=== PATIENT | male | born 1995 | race Caucasian/White ===

== ENCOUNTER 2016-08-24 09:14 | Inpatient (IN) | payer BC, OTHER ==
[~2016-08-24] VITALS: Ht 170.2 cm; Wt 72.6 kg
[2016-08-24 12:40] VITALS: BP 150/65
--- NOTE | 2016-08-24 13:21 | NUR ---
INTAKE ASSESSMENT received patient Aox4, stable, and ambulatory. Vital signs stable, allergic to Cefaclor. Patient reports no seizure history and no home medications. Explained unit protocols and policies and patient verbalized understanding. Will admit patient upon arrival to third floor.
--- NOTE | 2016-08-24 13:22 | NUR ---
ADMISSION NOTE Vital signs BP- 150/65 HR- 97 TEMP- 98.6 O-2 98% RR- 16 PAIN- 0/10 Height: 10 Weight: 160 lbs Allergies: Cefaclor Patient is a 21 year old male admitted to [facility] on 08/24/16 at 1255. Patient is under the care of Dr. Petersen for opiate dependence. Patient denies S/I or H/I at this time. Patient denies being hospitalized in the last 30 days. Patient denies chest pain or SOB. Patient reports no home medications, no past medical history. Upon assessment, patient has scars to left arm but skin intact. COWS 2. Patient reports using this morning and not experiencing w/d yet. Aox4 and able to answer necessary questions for admission.Patient is full code and regular diet. Patient denies seizure hx. Patient denies having a PCP. Breathing is even and unlabored. Patient reports this is his first time in treatment. Patient reports periods of homelessness and periods of living with mother. Patient smokes 1/2 a pack of cigarettes per day. Dr. Petersen has assessed patient and placed pt under observation. All needs have been met. Patient has been oriented to room, unit and staff. All safety measures are in place per hospital policy . Bed in lowest position, side rails up x2, call rodríguez within reach. Will monitor. Substance Abuse: Heroin 1 gram daily for 9 months, last used 0.3 gram this morning (08/24/16) Addendum: 08/24/16 at 1640 by SANTO KING RN Patient reports using meth 1 week ago "unknown amount" and states "I barely use meth, maybe once a week if that."
[2016-08-24 14:04] LABS: *AMPHETAMINE, URINE POSITIVE (NEGATIVE); *BARBITURATE, URINE NEGATIVE (NEGATIVE); *CANNABINOID, URINE NEGATIVE (NEGATIVE); *COCCAINE, URINE NEGATIVE (NEGATIVE); *OPIATE, URINE POSITIVE (NEGATIVE); *PHENCYCLIDINE SCREEN,URINE NEGATIVE (NEGATIVE)
[2016-08-24] MEDS ORDERED: BUPRENORPHINE HCL 2 MG TAB.SUBL SL PRN (14:15)
[2016-08-24] MEDS ORDERED: HYDROXYZINE PAMOATE 25 MG CAPSULE PO PRN (14:15)
[2016-08-24] MEDS ORDERED: DICYCLOMINE HCL 20 MG TABLET PO PRN (14:15)
[2016-08-24] MEDS ORDERED: IBUPROFEN 600 MG TABLET PO PRN (14:15)
[2016-08-24] MEDS ORDERED: CLONIDINE HCL 0.1 MG TABLET PO PRN (14:15)
[2016-08-24] MEDS ORDERED: MAGNESIUM HYDROXIDE 30 ML LIQUID UDC PO PRN (14:15)
[2016-08-24] MEDS ORDERED: ONDANSETRON 4 MG/2 ML VIAL IM PRN (14:15)
[2016-08-24] MEDS ORDERED: MIRALAX 17 GM POWD.PACK PO PRN (14:15)
[2016-08-24] MEDS ORDERED: LOPERAMIDE HCL 2 MG CAPSULE PO PRN ×2 (14:15)
[2016-08-24] MEDS ORDERED: MAG HYDROX/AL HYDROX/SIMETH 30 ML LIQUID UDC PO PRN (14:15)
[2016-08-24] MEDS ORDERED: ACETAMINOPHEN 325 MG TABLET PO PRN (14:15)
[2016-08-24] MEDS ORDERED: ONDANSETRON ODT 4 MG TAB.RAPDIS SL PRN (14:15)
[2016-08-24] MEDS ORDERED: METHOCARBAMOL 750 MG TABLET PO PRN (14:15)
[2016-08-24 16:00] VITALS: BP 126/75
--- NOTE | 2016-08-24 18:26 | NUR ---
END OF SHIFT NOTE Admitted patient this afternoon for opiate dependence. Patient is Aox4, steady, with vitals stable. Denies S/I & H/I.COWS score 2 upon admission and reassessment. Patient reports not withdrawing yet, but he expects to this evening as he last used just before admission. Patient has been napping and eating since admission. No medications administered yet. No taper started. All needs have been met. Safety measures in place. Patient currently sleeping with rr even and unlabored, call light within reach, bed locked and in lowest position. Will pass shift report to oncoming nurse.
[2016-08-24 20:00] VITALS: BP 113/59
--- NOTE | 2016-08-24 20:00 | NUR ---
Start of Shift Pt is a 21 year old male admitted for Opiate dependence, PRN available for s/s of withdrawal. Pt reported using Heroin 1 gram/daily x9 months. Pt denies PMH, reports allergies to ceclor, fall precautions, regular diet and full code. Upon assessment, pt appears to be flushed/clammy skin, reports nausea, teary eyes/stuffy nose, difficulty sitting still, reports aching throughout body, respirations even/unlabored, denies SOB/chest pain. Safety measures in place, call light within reach, side rails up x2, bed locked and in low position. Will continue to monitor.
--- NOTE | 2016-08-24 20:30 | NUR ---
Nursing Note TRAVON 13, Available Subutex 4mg PRN Offered to patient, however pt refused. Pt stated, "I don't want it, I want to way a little bit". Continued to offered, pt continued to refuse. Safety measures in place, will continue to monitor.
--- NOTE | 2016-08-24 22:00 | NUR ---
PRN Subutex Administration LADIWA 14 - flushed/observable - moist skin, difficulty sitting still, reports of body aches, running/tearing eyes, stuffy nose, stomach cramps. Subutex 4mg PRN administered per orders. Safety measures in place, will continue to monitor. Addendum: 08/25/16 at 0354 by GRABIEL EPPERSON RN CORRECTION: COWS [place] NOT TRAVON
--- NOTE | 2016-08-24 23:00 | NUR ---
PRN Subutex Reassessment COWS 14 decreased to COWS 10. Needs met, Safety measures in place, will continue to monitor.
[2016-08-25] VITALS: BP 112/63
--- NOTE | 2016-08-25 | NUR ---
Vital Signs BP 112/63, pulse 68, respirations 16, SpO2 97%, temp 98.4, no pain 0/10 COWS deferred d/t pt sleeping to assess while pt is awake as ordered. Safety measures in place. Will continue to monitor.
[2016-08-25 04:00] VITALS: BP 124/61
--- NOTE | 2016-08-25 04:00 | NUR ---
Vital Signs BP 124/61, pulse 63, respirations 14, SpO2 97%, temp 97.8, no pain 0/10 COWS deferred d/t pt sleeping to assess while pt is awake as ordered. Safety measures in place. Will continue to monitor
--- NOTE | 2016-08-25 07:00 | NUR ---
End of Shift Pt is a 21 year old male admitted for Opiate dependence, PRN available for s/s of withdrawal. Pt reported using Heroin 1 gram/daily x9 months. Pt denies PMH, reports allergies to cefaclor, fall precautions, regular diet and full code. During shift, highest COWS 14 - pt presented with flushed/observable - moist skin, difficulty sitting still, reports of body aches, running/tearing eyes, stuffy nose, stomach cramps - Subutex 4mg PRN administered per ordered. COWS 14 decreased to COWS 10. Pt slept for 8 hours, intake of 1000ml PO, voids x1 and stool x0. Safety measures in place, call light within reach, side rails up x2, bed locked and in low position. Endorsed to day shift nurse.
--- NOTE | 2016-08-25 07:41 | NUR ---
START OF SHIFT Received patient this morning alert and oriented x4.Patient reports feeling decent, but not that great. He was given PRN Subutex per night nurse for elevated C[facility]. Patient slept 8 hours. Last COWS 10 per [facility] shift [facility]. Encouraged patient to drink increased amounts of fluids this shift. Encouraged attendance of groups and activities. Will provide safe and supportive environment. Informed patient to notify RN if s/s of w/d worsen. Labs still needed to be drawn. Will continue to monitor.
[2016-08-25 08:00] VITALS: BP 110/67
[2016-08-25] MEDS: MULTIVITAMINS,THERAPEUTIC TABLET PO SCH (08:12)
[2016-08-25] MEDS: BUPRENORPHINE HCL 2 MG TAB.SUBL SL SCH ×3 (08:13→20:26)
[2016-08-25] MEDS ORDERED: TUBERCULIN,PURIF.PROT.DERIV. 5 TU/0.1 ML TEST ID ONE (09:00)
[2016-08-25 09:13] LABS: BASOPHILS % (AUTO) 0.5 % (0.0-2.0); EOSINOPHILS % (AUTO) 0.8 % (0.0-7.0); HEMATOCRIT 41.1 % (40-50); HEMOGLOBIN 13.5 G/DL (14.0-18.0); LYMPHOCYTES # (AUTO) 1.5 K/UL (0.8-4.8); LYMPHOCYTES % (AUTO) 25.8 % (20.5-51.5); MEAN CORPUSCULAR HEMOGLOBIN 28.6 UUG (27.0-31.0); MEAN CORPUSCULAR HGB CONC 33 g/dL (32.0-37.0); MEAN CORPUSCULAR VOLUME 86.7 FL (82.0-92.0); MONOCYTES # (AUTO) 0.4 K/UL (0.1-1.30); NEUTROPHILS # (AUTO) 4.1 K/UL (1.8-8.9); NEUTROPHILS % (AUTO) 66.9 % (38.5-71.5); PLATELET COUNT (AUTO) 336 K/UL (150-450); RED BLOOD CELL COUNT(AUTO) 4.74 MIL/UL (4.7-6.1)
[2016-08-25 09:31] LABS: ETHANOL < 3 MG/DL (0-0)
[2016-08-25 09:35] LABS: ALANINE AMINOTRANSFERASE 19 U/L (16-63); ALKALINE PHOSPHATASE 90 U/L (50-136); ASPARTATE AMINOTRANSFERASE 18 U/L (15-37); BILIRUBIN,TOTAL 0.3 mg/dL (0.2-1.0); CARBON DIOXIDE 28 mmol/L (21-32); CHLORIDE 105 mmol/L (98-107); CREATININE 0.7 mg/dL (0.6-1.3); GLUCOSE 101 mg/dL (74-106); MAGNESIUM 1.9 mg/dL (1.8-2.4); POTASSIUM 4.2 mmol/L (3.5-5.1); TOTAL PROTEIN, SERUM 7.3 g/dL (6.4-8.2); UREA NITROGEN, BLOOD 10 mg/dL (7-18)
[2016-08-25 09:45] LABS: THYROID STIMULATING HORMONE 0.384 mIU/mL (0.358-3.740)
[2016-08-25 12:00] VITALS: BP 99/56
--- NOTE | 2016-08-25 13:03 | NUR ---
1200 COWS DEFERRED d/t patient sleeping and order being while awake. Patient vitals are stable, rr even and unlabored. No signs of distress noted. Bed locked and in lowest position call rodríguez within reach. Will monitor closely
[2016-08-25 16:00] VITALS: BP 111/70
--- NOTE | 2016-08-25 18:23 | NUR ---
END OF SHIFT Patient started on 4 day Subutex taper during shift and tolerated well. No PRNs given during shift as detox meds are effective. Patient presents with flat affect. Last COWS 8. Patient slept in bed most of shift and reported feeling very tired . 1200 COWS deferred d/t patient being asleep. Vital signs stable. Patient compliant with medications. TB test administered during shift with no complications. All needs have been met. Safety measures in place. Will pass shift report to oncoming nurse.
--- NOTE | 2016-08-25 19:08 | NUR ---
Start of shift note Received report from day shift nurse. Pt is a 21 yo male, A+OX4, presenting to [facility] for Opiate dependence. Pt has Allergies to Cefaclor, is on Full Code status, and on Regular diet. Pt is on Fall precautions. Pt has no medical HX to report. Pt is on 4 day Subutex taper, tolerated well. No s/s of distress noted at this time. Respirations even and unlabored. Will continue to monitor.
[2016-08-25 20:17] VITALS: BP 119/64
[2016-08-25] MEDS: DOCUSATE SODIUM 100 MG CAPSULE PO SCH (20:26)
[2016-08-26 00:59] VITALS: BP 102/49
[2016-08-26 04:33] VITALS: BP 106/55
--- NOTE | 2016-08-26 07:00 | NUR ---
End of shift note Pt is a 21 yo male, A+OX4, presenting to [facility] for Opiate dependence. Pt has Allergies to Cefaclor, is on Full Code status, and on Regular diet. Pt is on Fall precautions. Pt has no medical HX to report. Pt is on 4 day Subutex taper, tolerated well. Pt slept for a total of 9 HRS. Last COWS: 1 @0400. No s/s of distress noted at this time. Respirations even and unlabored. Will endorse to day shift nurse.
--- NOTE | 2016-08-26 07:01 | NUR ---
Start of Shift Notes: Received patient in his room. Alert and oriented x 4. Verbally responsive. Able to make his needs known. Respirations even and unlabored. No SOB noted. Skin warm and dry to touch. Abdomen soft and non-distended with (+) BS in all 4 quadrants. No complains of N/V/D or constipation noted. No complains of abdominal discomfort. Bladder non-distended. Voids independently. Ambulatory ad ravi with steady gait. Patient is a 21 year old male admitted for opiate dependence who was placed on a 4-day Subutex taper as ordered. Denies any past medical hx. NKA. FULL CODE. Regular diet. on fall and seizure precautions. Educated patient on his current plan of care for the day and his medication regimen. Encouraged oral fluid intake and encouraged group participation to learn new skills to prevent relapse. Slept for 9 hours. Will continue to monitor closely.
[2016-08-26 08:00] VITALS: BP 97/62
[2016-08-26] MEDS ORDERED: BUPRENORPHINE HCL 2 MG TAB.SUBL SL SCH (09:00)
[2016-08-26] MEDS: MULTIVITAMINS,THERAPEUTIC TABLET PO SCH (09:17)
[2016-08-26 12:00] VITALS: BP 102/66
[2016-08-26] MEDS: DICYCLOMINE HCL 20 MG TABLET PO SCH ×2 (14:24→21:53)
[2016-08-26] MEDS: BUPRENORPHINE HCL 2 MG TAB.SUBL SL SCH ×2 (14:24→21:53)
[2016-08-26] MEDS: BACLOFEN 10 MG TABLET PO SCH ×2 (14:24→21:53)
[2016-08-26 16:00] VITALS: BP 105/67
--- NOTE | 2016-08-26 16:37 | NUR ---
Therapist prompted client to attend daily group therapy sessions. Client stated that he was not feeling well at this time, but would attend when he feels better.
--- NOTE | 2016-08-26 18:50 | NUR ---
End of Shift Notes: Patient is a 21 year old male admitted for opiate dependence who was placed on a 4-day Subutex taper as ordered. Patient is tolerating taper well. No adverse reactions noted. Denies any past medical hx. Prior to admission, patient was using 1 gram of Heroin daily x 9 months. VS monitored closely q 4 hours. No significant abnormalities noted. Withdrawal symptoms were closely monitored. Initial COWS 5, patient presented with chills, hot flashes, muscle aches and pains and anxiety. Last COWS 3. Per patient, Subutex has been effective in reducing his withdrawal symptoms. Unable to participate in group due to his withdrawal symptoms, however compliant with care and treatment. Safety precautions in place. All needs met and attended. Will continue to monitor closely.
--- NOTE | 2016-08-26 19:07 | NUR ---
Start of shift note Received report from day shift nurse. Pt is a 21 yo male, A+OX4, presenting to [facility] for Opiate dependence. Pt has Allergies to Cefaclor, is on Full Code status, and on Regular diet. Pt is on Fall precautions. Pt has no medical HX to report. Pt is on 4 day Subutex taper, tolerated well. No s/s of distress noted at this time. Respirations even and unlabored. Will continue to monitor.
[2016-08-26 20:14] VITALS: BP 108/59
[2016-08-26] MEDS: DOCUSATE SODIUM 100 MG CAPSULE PO SCH (21:53)
[2016-08-26] MEDS: diphenhydrAMINE 50 MG CAPSULE PO PRN (21:53)
--- NOTE | 2016-08-26 21:56 | NUR ---
PRN Benadryl Pt c/o inability to sleep and requested for PRN Benadryl. Medication given and tolerated well. Will reassess within 1 HR. Will continue to monitor.
--- NOTE | 2016-08-26 22:45 | NUR ---
PRN Benadryl Reassessment Medication effective. Pt is resting well in bed. No s/s of ASE/distress noted at this time. Respirations even and unlabored. Will continue to monitor.
[2016-08-27 00:12] VITALS: BP 110/62
[2016-08-27 04:24] VITALS: BP 119/68
--- NOTE | 2016-08-27 07:00 | NUR ---
End of shift note Pt is a 21 yo male, A+OX4, presenting to [facility] for Opiate dependence. Pt has Allergies to Cefaclor, is on Full Code status, and on Regular diet. Pt is on Fall precautions. Pt has no medical HX to report. Pt is on 4 day Subutex taper, tolerated well. Pt was given PRN Benadryl @2156. Pt slept for a total of 11 HRS. Last COWS: 2 @0400. No s/s of distress noted at this time. Respirations even and unlabored. Will endorse to day shift nurse.
--- NOTE | 2016-08-27 07:01 | NUR ---
Start of Shift Notes: Received patient in his room. Alert and oriented x 4. Verbally responsive. Able to make his needs known. Respirations even and unlabored. No SOB noted. Skin warm and dry to touch. Abdomen soft and non-distended with (+) BS in all 4 quadrants. No complains of N/V/D or constipation noted. No complains of abdominal discomfort. Bladder non-distended. Voids independently. Ambulatory ad ravi with steady gait. Patient is a 21 year old male admitted for opiate dependence who was placed on a 4-day Subutex taper as ordered. Denies any past medical hx. NKA. FULL CODE. Regular diet. on fall and seizure precautions. Educated patient on his current plan of care for the day and his medication regimen. Encouraged oral fluid intake and encouraged group participation to learn new skills to prevent relapse. Slept for 11 hours. Last COWS 2. Will continue to monitor closely.
[2016-08-27 08:00] VITALS: BP 121/77
[2016-08-27 08:09] LABS: HEPATITIS B SURFACE AG Negative (Negative)
[2016-08-27] MEDS: DICYCLOMINE HCL 20 MG TABLET PO SCH ×3 (09:36→21:47)
[2016-08-27] MEDS: BACLOFEN 10 MG TABLET PO SCH ×3 (09:36→21:47)
[2016-08-27] MEDS: MULTIVITAMINS,THERAPEUTIC TABLET PO SCH (09:36)
[2016-08-27] MEDS: BUPRENORPHINE HCL 2 MG TAB.SUBL SL SCH ×3 (09:36→21:47)
[2016-08-27 12:00] VITALS: BP 109/60
--- NOTE | 2016-08-27 15:37 | NUR ---
Therapist prompted client to attend group, and informed client of the group times. Client stated that he was not feeling up to attending at this time.
[2016-08-27 16:00] VITALS: BP 120/67
--- NOTE | 2016-08-27 18:56 | NUR ---
End of Shift Notes: Patient is a 21 year old male admitted for opiate dependence who was placed on a 4-day Subutex taper as ordered. Patient is tolerating taper well. No adverse reactions noted. Denies any past medical hx. Prior to admission, patient was using 1 gram of Heroin daily x 9 months. VS monitored closely q 4 hours. No significant abnormalities noted. Withdrawal symptoms were closely monitored. Initial COWS 2, patient presented with chills, hot flashes, muscle aches and pains and anxiety. Last COWS 2. Per patient, Subutex has been effective in reducing his withdrawal symptoms. Requires encouragement to attend group and therapy sessions, however compliant with care and treatment. Safety precautions in place. All needs met and attended. Will continue to monitor closely.
--- NOTE | 2016-08-27 19:08 | NUR ---
Start of shift note Received report from day shift nurse. Pt is a 21 yo male, A+OX4, presenting to [facility] for Opiate dependence. Pt has Allergies to Cefaclor, is on Full Code status, and on Regular diet. Pt is on Fall precautions. Pt has no medical HX to report. Pt is on 4 day Subutex taper, tolerated well. No s/s of distress noted at this time. Respirations even and unlabored. Will continue to monitor.
[2016-08-27 20:21] VITALS: BP 114/67
[2016-08-27] MEDS: diphenhydrAMINE 50 MG CAPSULE PO PRN (21:47)
[2016-08-27] MEDS: DOCUSATE SODIUM 100 MG CAPSULE PO SCH (21:47)
--- NOTE | 2016-08-27 21:49 | NUR ---
PRN Benadryl Pt c/o inability to sleep and requested for PRN Benadryl. Medication given and tolerated well. Will reassess within 1 HR. Will continue to monitor.
[2016-08-28 00:28] VITALS: BP 118/72
[2016-08-28 04:17] VITALS: BP 122/78
--- NOTE | 2016-08-28 07:30 | NUR ---
Start of shift note; Patient is AOX4. patient is a 21 year old male admitted on 08/24/16 for Opiate withdrawals. Patient was placed on a 4 day Subutex taper, no adverse reactions noted. Patient denies any past medical history. Educated patient regarding the importance of compliance to treatment and medication plan, verbalized understanding. All safety measures secured. Will continue to monitor patient.
[2016-08-28 08:00] VITALS: BP 107/62
[2016-08-28] MEDS: BACLOFEN 10 MG TABLET PO SCH ×3 (09:00→21:02)
[2016-08-28] MEDS ORDERED: BUPRENORPHINE HCL 2 MG TAB.SUBL SL SCH (09:00)
[2016-08-28] MEDS: MULTIVITAMINS,THERAPEUTIC TABLET PO SCH (09:33)
[2016-08-28] MEDS: DICYCLOMINE HCL 20 MG TABLET PO SCH ×3 (09:33→21:02)
[2016-08-28 12:00] VITALS: BP 116/52
[2016-08-28] MEDS ORDERED: HYDR-3895 PO (12:18)
[2016-08-28] MEDS ORDERED: DICY20TA28 PO (12:18)
[2016-08-28] MEDS ORDERED: IBUP-1955 PO (12:18)
[2016-08-28] MEDS ORDERED: DOCU100C36 PO (12:18)
[2016-08-28] MEDS ORDERED: BACL10TA PO (12:18)
[2016-08-28] MEDS ORDERED: DIPH50CA37 PO (12:18)
[2016-08-28 13:01] LABS: *AMPHETAMINE, URINE NEGATIVE (NEGATIVE); *BARBITURATE, URINE NEGATIVE (NEGATIVE); *CANNABINOID, URINE NEGATIVE (NEGATIVE); *COCCAINE, URINE NEGATIVE (NEGATIVE); *OPIATE, URINE POSITIVE (NEGATIVE); *PHENCYCLIDINE SCREEN,URINE NEGATIVE (NEGATIVE)
[2016-08-28 16:00] VITALS: BP 124/78
--- NOTE | 2016-08-28 18:33 | NUR ---
End of shift note; Patient is AOX4. Patient remained compliant to treatment plan, medications were effective in reducing withdrawal symptoms. Patient's vital signs remained within normal limits. Patient is medically cleared for discharge tomorrow. All safety measures secured. Met all needs.
--- NOTE | 2016-08-28 19:15 | NUR ---
Start of Shift Patient Received. Patient is in his room, awake, alert and verbally responsive. Breathing even and non labored. No signs of pain or discomfort noted. Patient is a 21 year old male, admitted on 08/24/16 for Opiate Dependence under the care of Dr. Petersen. Patient has completed a 4 day Subutex taper. Patient verbalizes allergies to Cefaclor, follows a regular diet, full code, placed on fall precautions, skin noted intact. Patient denies past medical history. Per endorsement, patient is set for discharge tomorrow 08/29/16. Patients last COWS noted to be 1. All needs attended to promptly. Will continue plan of care as ordered.
[2016-08-28 20:45] VITALS: BP 122/69
[2016-08-28] MEDS: DOCUSATE SODIUM 100 MG CAPSULE PO SCH (21:02)
[2016-08-28] MEDS: diphenhydrAMINE 50 MG CAPSULE PO PRN (21:05)
--- NOTE | 2016-08-28 21:05 | NUR ---
PRN Medication Administration Patient verbalizing inability of falling asleep. All non-pharmacological interventions noted to be not effective. PRN Benadryl administered as per order. Will continue to monitor.
[2016-08-29 00:46] VITALS: BP 118/60
[2016-08-29 04:30] VITALS: BP 113/55
--- NOTE | 2016-08-29 07:05 | NUR ---
Start of Shift Endorsement received from nightshift nurse. Pt is a 26 y/o female admitted for Heroin and Xanax dependence. Pt has been placed on a 5 day Ativan and 5 day Subutex taper. Pt has completed both tapers. Pt is not withdrawing at this time AEB CIWA 1, COWS 0. Pt has been scheduled to be discharged today. All discharge teaching and documentation has been completed. Pt received PRN Benadryl during nightshift. Pt reports sleeping 4 hours during the night. VS WNL, Full Code. PT is alert and oriented x4. Pt is in STABLE condition at this time. Remains compliant with medication and diet regimen. All needs have been met, All safety measures in place per hospital policy. Bed in lowest position, side rails up x2, call-light within reach. Will continue to monitor
--- NOTE | 2016-08-29 07:12 | NUR ---
End of Shift Patient is in bed sleeping. Breathing even and non labored. No signs of pain or discomfort. Patient is a 21 year old male, admitted on 08/24/16 for Opiate Dependence under the care of Dr. Petersen. Patient has completed a 4 day Subutex taper. Patient verbalizes allergies to Cefaclor, regular diet, full code, placed on fall precautions, skin noted intact. Patient denies past medical history. Patient is set for discharge today 08/29/16. All needs attended to promptly. Will endorse to continue plan of care as ordered.
[2016-08-29] MEDS: DICYCLOMINE HCL 20 MG TABLET PO SCH (08:41)
[2016-08-29] MEDS: MULTIVITAMINS,THERAPEUTIC TABLET PO SCH (08:41)
[2016-08-29] MEDS: BACLOFEN 10 MG TABLET PO SCH (08:41)
--- NOTE | 2016-08-29 09:33 | NUR ---
Discharge note PT has been discharged from [facility] to home. PT is in Stable condition, VS WNL. Denies suicidal and homicidal ideations at this time. . All documentation and discharge teaching has been completed, paperwork signed and dated. Pt left with all of his belongings, medications and prescriptions. Pt has been discharged from [facility] on 04/30/16 at 0933. has been Notified.
== END 2016-08-29 09:30 | disposition home or self-care (01) | DRG 895 ==
LOC: SRC 12:14
PROVIDERS: ADMIT Internal Medicine; ATTEND Internal Medicine
PROC: HZ2ZZZZ Detoxification Services for Substance Abuse Treatment (ICD-10-PCS; principal; 2016-08-24)
PROC: HZ31ZZZ Individual Counseling for Substance Abuse Treatment, Behavioral (ICD-10-PCS; 2016-08-27)
DX: F11.23 Opioid dependence with withdrawal (principal); F15.20 Other stimulant dependence, uncomplicated; F32.9 Major depressive disorder, single episode, unspecified; F10.21 Alcohol dependence, in remission; F41.9 Anxiety disorder, unspecified; F17.210 Nicotine dependence, cigarettes, uncomplicated; F14.21 Cocaine dependence, in remission; D64.9 Anemia, unspecified; Z81.1 Family history of alcohol abuse and dependence; Z81.3 Family history of other psychoactive substance abuse and dependence; Z80.1 Family history of malignant neoplasm of trachea, bronchus and lung; Z81.8 Family history of other mental and behavioral disorders; Z82.0 Family history of epilepsy and other diseases of the nervous system; Z59.0 Homelessness; Z80.0 Family history of malignant neoplasm of digestive organs
CPT/HCPCS: 36415; 80307; 80324; 80361; 83735; 84443; 85025; 86592; 86705; 86803; 87340; 87806; A4663; G0480; Q0163

== ENCOUNTER 2017-03-19 14:51 | Inpatient (IN) | payer BC, OTHER ==
[~2017-03-19] VITALS: Ht 170.2 cm; Wt 65.8 kg
[~2017-03-19 14:51] MED LIST: BACL10TA PO; DICY20TA28 PO; DIPH50CA37 PO; DOCU100C36 PO; HYDR-3895 PO; IBUP-1955 PO
[2017-03-19] MEDS ORDERED: BUPRENORPHINE HCL 2 MG TAB.SUBL SL PRN (18:30)
[2017-03-19] MEDS ORDERED: MIRALAX 17 GM POWD.PACK PO PRN (18:30)
[2017-03-19] MEDS ORDERED: ACETAMINOPHEN 325 MG TABLET PO PRN (18:30)
[2017-03-19] MEDS ORDERED: MAGNESIUM HYDROXIDE 30 ML LIQUID UDC PO PRN (18:30)
[2017-03-19] MEDS ORDERED: HYDROXYZINE PAMOATE 25 MG CAPSULE PO PRN (18:30)
[2017-03-19] MEDS ORDERED: ONDANSETRON 4 MG/2 ML VIAL IM PRN (18:30)
[2017-03-19] MEDS ORDERED: MAG HYDROX/AL HYDROX/SIMETH 30 ML LIQUID UDC PO PRN (18:30)
[2017-03-19] MEDS ORDERED: DICYCLOMINE HCL 20 MG TABLET PO PRN (18:30)
[2017-03-19] MEDS ORDERED: diphenhydrAMINE 50 MG CAPSULE PO PRN (18:30)
[2017-03-19] MEDS ORDERED: IBUPROFEN 600 MG TABLET PO PRN (18:30)
[2017-03-19] MEDS ORDERED: LOPERAMIDE HCL 2 MG CAPSULE PO PRN ×2 (18:30)
[2017-03-19] MEDS ORDERED: LORAZEPAM 1 MG TABLET PO PRN (18:30)
[2017-03-19 19:37] LABS: *AMPHETAMINE, URINE NEGATIVE (NEGATIVE); *BARBITURATE, URINE NEGATIVE (NEGATIVE); *CANNABINOID, URINE NEGATIVE (NEGATIVE); *COCCAINE, URINE NEGATIVE (NEGATIVE); *OPIATE, URINE POSITIVE (NEGATIVE); *PHENCYCLIDINE SCREEN,URINE NEGATIVE (NEGATIVE)
[2017-03-19 19:58] LABS: BASOPHILS % (AUTO) 0.3 % (0.0-2.0); EOSINOPHILS # (AUTO) 0.1 K/uL (0.0-0.7); EOSINOPHILS % (AUTO) 0.8 % (0.0-7.0); HEMATOCRIT 37.3 % (36.7-47.1); HEMOGLOBIN 12.8 g/dL (12.5-16.3); LYMPHOCYTES # (AUTO) 1.8 K/uL (20.0-40.0); LYMPHOCYTES % (AUTO) 16.4 % (20.5-51.5); MEAN CORPUSCULAR HEMOGLOBIN 30.2 uug (23.8-33.4); MEAN CORPUSCULAR HGB CONC 34 g/dL (32.5-36.3); MEAN CORPUSCULAR VOLUME 87.8 fL (73.0-96.2); MONOCYTES % (AUTO) 8.7 % (0.0-11.0); NEUTROPHILS # (AUTO) 8.2 K/uL (1.8-8.9); NEUTROPHILS % (AUTO) 73.8 % (38.5-71.5); PLATELET COUNT (AUTO) 272 K/uL (152-348); RED BLOOD CELL COUNT(AUTO) 4.25 MIL/uL (4.06-5.63); WHITE BLOOD COUNT (AUTO) 11.1 K/uL (3.6-10.2)
[2017-03-19 20:00] VITALS: BP 132/69
[2017-03-19 20:02] LABS: ETHANOL < 3 MG/DL (0-0)
[2017-03-19 20:06] LABS: ALANINE AMINOTRANSFERASE 14 U/L (16-63); ALKALINE PHOSPHATASE 102 U/L (50-136); ASPARTATE AMINOTRANSFERASE 10 U/L (15-37); BILIRUBIN,TOTAL 0.6 mg/dL (0.2-1.0); CARBON DIOXIDE 32 mmol/L (21-32); CREATININE 0.7 mg/dL (0.6-1.3); GLUCOSE 99 mg/dL (74-106); MAGNESIUM 1.8 mg/dL (1.8-2.4); TOTAL PROTEIN, SERUM 7.7 g/dL (6.4-8.2); UREA NITROGEN, BLOOD 9 mg/dL (7-18)
[2017-03-19 20:13] LABS: CHLORIDE 101 mmol/L (98-107); POTASSIUM 3.9 mmol/L (3.5-5.1)
[2017-03-19] MEDS ORDERED: NICOTINE 14 MG/24HR PATCH TD PRN (20:15)
[2017-03-19] MEDS ORDERED: GUAIFENESIN SUGAR FREE 100 MG/5 ML UDC PO PRN (20:15)
[2017-03-19] MEDS ORDERED: NICOTINE POLACRILEX 4 MG GUM-PK OF TEN BC PRN (20:15)
[2017-03-19] MEDS: GABAPENTIN 300 MG CAPSULE PO SCH (20:36)
[2017-03-19] MEDS: BENZOCAINE/MENTH/CETYLPYRD LOZENGE MM PRN (20:37)
[2017-03-19] MEDS ORDERED: LORAZEPAM 1 MG TABLET PO ONE (21:00)
[2017-03-20 08:00] VITALS: BP 116/61
[2017-03-20] MEDS ORDERED: TUBERCULIN,PURIF.PROT.DERIV. 5 TU/0.1 ML TEST ID ONE (09:00)
[2017-03-20] MEDS: GABAPENTIN 300 MG CAPSULE PO SCH ×2 (09:03→21:37)
[2017-03-20] MEDS: BUPRENORPHINE HCL 2 MG TAB.SUBL SL SCH ×3 (09:30→21:39)
[2017-03-20 12:00] VITALS: BP 102/59
[2017-03-20] MEDS: ONDANSETRON ODT 4 MG TAB.RAPDIS SL PRN (12:47)
[2017-03-20] MEDS: METHOCARBAMOL 750 MG TABLET PO PRN (12:48)
[2017-03-20] MEDS: CLONIDINE HCL 0.1 MG TABLET PO PRN (12:54)
[2017-03-20] MEDS ORDERED: GUAIFENESIN LA 600 MG TABLET.SA PO PRN (13:30)
[2017-03-20] MEDS ORDERED: AZITHROMYCIN 250 MG TABLET PO ONE (15:00)
[2017-03-20 16:00] VITALS: BP 135/78
[2017-03-20] MEDS: ESCITALOPRAM OXALATE 10 MG TABLET PO SCH (16:51)
[2017-03-20] MEDS ORDERED: TRAZODONE 50 MG TABLET PO PRN (17:00)
[2017-03-20 20:00] VITALS: BP 100/65
[2017-03-20] MEDS: BENZOCAINE/MENTH/CETYLPYRD LOZENGE MM PRN (21:38)
[2017-03-21] VITALS: BP 107/55
[2017-03-21 08:00] VITALS: BP 111/65
[2017-03-21] MEDS ORDERED: BUPRENORPHINE HCL 2 MG TAB.SUBL SL SCH (09:00)
[2017-03-21] MEDS: ESCITALOPRAM OXALATE 10 MG TABLET PO SCH (09:23)
[2017-03-21] MEDS: GABAPENTIN 300 MG CAPSULE PO SCH ×3 (09:23→21:18)
[2017-03-21] MEDS: AZITHROMYCIN 250 MG TABLET PO SCH (09:24)
[2017-03-21] MEDS: BENZOCAINE/MENTH/CETYLPYRD LOZENGE MM PRN ×2 (09:33→17:52)
[2017-03-21] MEDS: METHOCARBAMOL 750 MG TABLET PO PRN ×2 (09:33→17:38)
[2017-03-21] MEDS ORDERED: TRAZODONE 50 MG TABLET PO PRN (10:00)
[2017-03-21 12:00] VITALS: BP 114/63
[2017-03-21] MEDS: DICYCLOMINE HCL 20 MG TABLET PO SCH ×2 (14:07→21:19)
[2017-03-21] MEDS: ONDANSETRON ODT 4 MG TAB.RAPDIS SL PRN (14:07)
[2017-03-21] MEDS: BUPRENORPHINE HCL 2 MG TAB.SUBL SL SCH ×2 (14:08→21:19)
[2017-03-21 16:00] VITALS: BP 111/61
[2017-03-21] MEDS: CLONIDINE HCL 0.1 MG TABLET PO PRN (17:39)
[2017-03-21 20:00] VITALS: BP 115/70
[2017-03-21] MEDS: CLONIDINE HCL 0.1 MG TABLET PO SCH (21:18)
[2017-03-21] MEDS: TRAZODONE 100 MG TABLET PO PRN (21:19)
[2017-03-22] VITALS: BP 110/64
[2017-03-22 08:00] VITALS: BP 107/62
[2017-03-22] MEDS: AZITHROMYCIN 250 MG TABLET PO SCH (08:37)
[2017-03-22] MEDS: DICYCLOMINE HCL 20 MG TABLET PO SCH ×3 (08:37→21:32)
[2017-03-22] MEDS: ESCITALOPRAM OXALATE 10 MG TABLET PO SCH (08:37)
[2017-03-22] MEDS: GABAPENTIN 300 MG CAPSULE PO SCH ×3 (08:37→21:32)
[2017-03-22] MEDS: BUPRENORPHINE HCL 2 MG TAB.SUBL SL SCH ×3 (08:37→21:32)
[2017-03-22] MEDS: CLONIDINE HCL 0.1 MG TABLET PO SCH ×2 (08:38→21:32)
[2017-03-22] MEDS: ONDANSETRON ODT 4 MG TAB.RAPDIS SL PRN (08:44)
[2017-03-22 12:00] VITALS: BP 92/52
[2017-03-22] MEDS: BACLOFEN 10 MG TABLET PO SCH ×2 (14:11→21:32)
[2017-03-22 16:00] VITALS: BP 97/54
[2017-03-22 20:00] VITALS: BP 105/70
[2017-03-22] MEDS: TRAZODONE 100 MG TABLET PO PRN (21:32)
[2017-03-23] VITALS: BP 95/52
[2017-03-23 08:55] VITALS: BP 95/65
[2017-03-23] MEDS: DICYCLOMINE HCL 20 MG TABLET PO SCH ×2 (08:57→15:00)
[2017-03-23] MEDS: ESCITALOPRAM OXALATE 10 MG TABLET PO SCH (08:57)
[2017-03-23] MEDS: BACLOFEN 10 MG TABLET PO SCH ×2 (08:57→15:00)
[2017-03-23] MEDS: AZITHROMYCIN 250 MG TABLET PO SCH (08:57)
[2017-03-23] MEDS: GABAPENTIN 300 MG CAPSULE PO SCH ×2 (08:57→15:00)
[2017-03-23] MEDS: CLONIDINE HCL 0.1 MG TABLET PO SCH (08:58)
[2017-03-23] MEDS ORDERED: BUPRENORPHINE HCL 2 MG TAB.SUBL SL SCH (09:00)
[2017-03-23 12:48] VITALS: BP 102/64
[2017-03-23] MEDS ORDERED: IBUP-1955 PO (12:55)
[2017-03-23] MEDS ORDERED: METH-406 PO (12:55)
[2017-03-23] MEDS ORDERED: CLON0.1T14 PO (12:55)
[2017-03-23] MEDS ORDERED: HYDR-3895 PO (12:55)
[2017-03-23] MEDS ORDERED: DICY20TA28 PO (12:55)
[2017-03-23] MEDS ORDERED: GABA-534 PO (12:55)
== END 2017-03-23 15:50 | disposition left against medical advice (07) | DRG 894 ==
LOC: SRC 18:26
PROVIDERS: ADMIT Internal Medicine; ATTEND Internal Medicine
PROC: HZ2ZZZZ Detoxification Services for Substance Abuse Treatment (ICD-10-PCS; principal; 2017-03-19)
PROC: HZ31ZZZ Individual Counseling for Substance Abuse Treatment, Behavioral (ICD-10-PCS; 2017-03-22)
DX: F11.23 Opioid dependence with withdrawal (principal); F33.1 Major depressive disorder, recurrent, moderate; F10.21 Alcohol dependence, in remission; Z81.1 Family history of alcohol abuse and dependence; F17.210 Nicotine dependence, cigarettes, uncomplicated; F41.9 Anxiety disorder, unspecified; F14.21 Cocaine dependence, in remission; F15.21 Other stimulant dependence, in remission; Z82.0 Family history of epilepsy and other diseases of the nervous system; Z80.1 Family history of malignant neoplasm of trachea, bronchus and lung; J20.9 Acute bronchitis, unspecified; Z81.8 Family history of other mental and behavioral disorders; Z80.0 Family history of malignant neoplasm of digestive organs; F13.21 Sedative, hypnotic or anxiolytic dependence, in remission
CPT/HCPCS: 36415; 71045; 80307; 80361; 83735; 85025; 86580; 87806; 93005; G0480; J2405; Q0144; Q0162